=== PATIENT | male | born 1995 | race African-American/Black ===

== ENCOUNTER 2024-11-24 19:18 | Inpatient (IN) | payer OTHER, SELFPAY ==
[2024-11-24] VITALS (10 sets, daily range): BP systolic 103–135; BP diastolic 61–85; BMI 19.8
--- NOTE | 2024-11-24 14:17 | ED.GENMED ---
History of Present Illness
General
Chief Complaint: Chest Pain
Source: patient and ambulance crew
Time Seen by Provider: 11/24/24 14:05
History of Present Illness
History of Present Illness:
29-year-old male with past medical history of seizure disorder, ADHD and depression, chronic substance abuse use presenting to the ER with medics and police from [facility] for evaluation of chest pain and lower extremity
edema, EMS stating patient is likely withdrawing from xylazine as patient uses multiple times per day and has not used in about 2 days. Patient notes that the chest discomfort and lower extremity edema is somewhat chronic for him but today seems a
little bit worse. Denies any fevers, chills, rigors. Patient notes that he routinely snorts the xylazine and is adamant he does not use through a needle. Denies fevers, chills, rigors, vomiting, bowel changes or urinary symptoms.
Past History
Past History
ED Past Medical History: Asthma, Seizures and Psychiatric
ED Past Surgical History: None
Social History
Tobacco: Smoker
Alcohol: None
Drug: Narcotics
Personal: Single
Living: long-term (usually with mom. 'in and out' [facility]. currently incarcerated.)
Review of Systems
Review of Systems
All Other Systems: ROS reviewed and negative except as documented in HPI and ROS
Phy Exam
Physical Exam
Physical Exam:
GENERAL: Alert , in no apparent distress, appears older than stated age, unkempt
EYE: clear conjunctiva b/l, pupils dilated to 5 mm bilateral
HEAD: NCAT
ENT: o/p clr, increased oral secretions
CARDIAC: Regular rate and rhythm .
LUNGS: Rhonchorous lung sounds throughout, no acute respiratory distress, speaking full sentences
ABDOMEN: Soft, without focal tenderness, no r/g, no cvat, negative Tejada sign, no tenderness at McBurney's point
NEUROLOGICAL: Alert and oriented
SKIN: Warm and dry flaking skin to the bilateral lower extremities, skin intact.
MUSCULOSKELETAL: 1+ pitting edema to the ankles, well perfused.
PSYCH: Normal and appropriate interaction.
Scores
Heart Failure Risk
Heart Failure Risk Score: Not Applicable
Heart Score for Chest Pain Patients
STEMI patient?: Not applicable
Withdrawal Assessment of Alcohol
Withdrawal Assessment Completed?: Not applicable
Course
Orders/Labs/Results
Orders:
Orders
11/24/24 14:09
EKG [Electrocardiogram (*1)] Urgent
Reason for Study: Chest Pain
EKG- Treatment ONCE
11/24/24 14:11
CR Chest - 2 Views Urgent
Comment:
Reason For Exam: chest pain, edema
11/24/24 14:15
Clonidine [Catapres] 0.1 mg PO NOW STA
11/24/24 14:19
Lorazepam [Ativan] 0.5 mg IV NOW STA
11/24/24 15:42
Complete Blood Count/With Diff Urgent
NT-proBNP Urgent
Troponin I Urgent
11/24/24 17:10
Comprehensive Metabolic Panel Urgent
Magnesium Urgent
Comment: ADDON
Phosphorus Urgent
Comment: ADDON
TSH Urgent
Comment: ADDON
11/24/24 17:53
Add On- LAB Urgent
Tests Added?: mag, phosphorous, TSH, parathyroid hormone
11/24/24 17:54
Potassium Chloride [KCl] 40 meq PO NOW STA
Potassium Chloride [KCl] 40 meq 0.9% Sodium Chloride 250 ml [Nss] 250 ml IV NOW
Abnormal Lab Results
11/24/24 11/24/24
15:42 17:10
RBC 3.80 L 10^6/uL
(4.70-6.10)
Hgb 10.3 L g/dL
(13.0-18.0)
Hct 31.8 L %
(39.0-52.0)
MCHC 32.4 L g/dL
(33.0-37.0)
RDW 16.4 H %
(11.5-14.5)
Plt Count 421 H 10^3/uL
(130-400)
Potassium 2.7 L* mmol/L
(3.5-5.1)
Chloride 112 H mmol/L
(98-107)
Calcium 6.5 L* mg/dl
(8.4-10.2)
Total Bilirubin 0.1 L mg/dl
(0.2-1.3)
Total Protein 3.7 L g/dl
(6.3-8.2)
Albumin 1.3 L g/dl
(3.5-5.0)
11/24/24 15:42
11/24/24 17:10
Vital Signs
Initial and Last Documented VS:
Initial Vital Signs
Temp Pulse Resp BP Pulse Ox
97.5 F 56 11 115/69 99
11/24/24 14:17 11/24/24 14:17 11/24/24 14:17 11/24/24 14:17 11/24/24 14:17
Last Documented Vital Signs
Temp Pulse Resp BP Pulse Ox
97.5 F 57 14 130/73 100
11/24/24 14:17 11/24/24 15:56 11/24/24 15:30 11/24/24 15:54 11/24/24 15:56
MDM/Problems Addressed
Differential Diagnosis Includes:
Opiate withdrawal, pneumonia, peripheral vascular disease, CHF, endocarditis or other valvular disease
MDM/Problems Addressed:
29-year-old male presenting the emergency department for evaluation of chest discomfort and lower extremity edema, recently became inmate at [facility] yesterday, last use of xylazine 2 days ago. Notes he uses multiple times
per day. He has increased oral secretions and pupillary dilatation. At this time I do suspect there to be mild withdrawal. Will check labs due to patient's reported chest pain including troponin and EKG. Chest x-ray ordered. Disposition pending
Chronic conditions affecting care: Psychiatric illness
*Radiology
Radiology exam reviewed: radiology read reviewed
*Pulse Oximetry
Patient hypoxic: no
*[employer] Interpretation
Rate: bradycardiac
Rhythm: sinus
*Critical Care Note
Total Time (30-74mins, 75-104mins- exclusive of procedures): Not Applicable
Patient Management
Escalation/DeEscalation of care consider admission/obs:
Patient has significant chemistry abnormalities with a potassium of 2.7 and calcium of 6.5. I added on magnesium, phosphorus, TSH and parathyroid hormone. Ordered potassium repletion both oral and IV. Patient unable to stand up on his own due to
generalized weakness. Given his symptomatic hypokalemia and hypocalcemia patient will require admission for repletion and further workup. Hospitalist team accepts for continued evaluation and treatment.
Also of note, patient's chest x-ray shows questionable pneumonia/pneumonitis. He does have increased oral secretions and is certainly possible he could have aspirated especially given his daily substance use. Will defer antibiotic treatment to
hospitalist team as patient is afebrile without leukocytosis or current respiratory symptoms.
ED Attending Note
-
Portions of this chart may have been created with voice recognition software.� Occasional wrong word or��sound alike� substitutions may have occurred due to the inherent limitations of voice recognition software.
Discharge Plan
Departure
Patient Disposition: Admit
Date of Disposition: 11/24/24
Time of Disposition: 17:55
Presentation/result/management discussed w/ accepting MD/DO: Hospitalist
Discharge Problem:
Opiate withdrawal, Hypocalcemia, Hypokalemia
Prescriptions:
No Action
fluticasone propion-salmeterol [Advair HFA] 1 PUFF HFA aerosol inhaler
PRN (Reason: ASTHMA)
venlafaxine [Effexor] 75 MG tablet
75 mg PO DAILY
trazodone 50 MG tablet
50 mg PO HS
Referrals:
[facility] [Family Provider] -
Interventions
Interventions:
*Risk Screen - Suicide Last Done: 11/24/24 16:00
*Neglect/Abuse Screening Last Done: 11/24/24 16:00
ED- Cardiac Assessment Last Done: 11/24/24 15:32
Discharge Date and Time
Print Language: ITALIAN
[2024-11-24] MEDS: ATIVAN 0.5 MG IV ×2 (15:51→21:07)
[2024-11-24 15:56] LABS: % Eosinophils 0.1 % (0-6); % Immature Granulocytes 0.4 % (0-0.5); % Lymphocytes 28.9 % (20.5-51.1); % Monocytes 4.6 % (1.7-9.3); Absolute Lymphocytes 2.5 10^3/uL (1.2-3.4); Absolute Monocytes 0.4 10^3/uL (0.1-0.6); Absolute Neutrophils 5.6 10^3/uL (1.4-6.5); Hematocrit 31.8 % (39.0-52.0); Hemoglobin 10.3 g/dL (13.0-18.0); Mean Corp Hgb Conc. 32.4 g/dL (33.0-37.0); Mean Corpuscular Hgb 27.1 pg (27.0-31.0); Mean Corpuscular Volume 83.7 fL (80.0-94.0); Mean Platelet Volume 9.4 fL (7.4-10.4); Nucleated Red Blood Cells % 0 % (-); Platelet Count 421 10^3/uL (130-400); Red Cell Dist. Width 16.4 % (11.5-14.5); White Blood Cell Count 8.5 10^3/uL (4.8-10.8)
[2024-11-24 16:16] LABS: NT-proBNP 419 pg/ml; Troponin I < 0.012 ng/ml
[2024-11-24 17:48] LABS: ALT (SGPT) 28 U/L (0-50); AST (SGOT) 26 U/L (17-59); Albumin 1.3 g/dl (3.5-5.0); Alkaline Phosphatase 76 U/L (38-126); Blood Urea Nitrogen 14 mg/dl (9-20); Calcium 6.5 mg/dl (8.4-10.2); Carbon Dioxide 26 mmol/L (22-30); Chloride 112 mmol/L (98-107); Estimated Creatinine Clearance > 125 ml/min; Glucose 72 mg/dl (70-99); Potassium 2.7 mmol/L (3.5-5.1); Sodium 138 mmol/L (135-145); Total Bilirubin 0.1 mg/dl (0.2-1.3); Total Protein 3.7 g/dl (6.3-8.2); eGFR > 60.00
[2024-11-24] MEDS: KCL 40 MEQ PO (18:09)
--- NOTE | 2024-11-24 18:18 | HPS.HSE ---
Family Physician
-
Family Physician: Facility [facility]
Chief Complaint
-
chest pain, lower extremity edema
History of Present Illness
Patient is a 29-year-old male with past medical history significant for chronic substance abuse, ADHD, depression, and hx seizure presented to [facility] ED for evaluation of chest pain and lower extremity edema. Patient states he always
has lower extremity edema and has never had it worked up. He states his chest pain is chronic as well and that it is slightly worse today then normal. He claims to only use xylazine by snorting, denies any other drug or alcohol use. States he smokes
a half of pack of cigarettes a day. He reports seizure history is from seizures when withdrawing from drug use. Patient denies any fever, chills, cough, shortness of breath, nausea, vomiting, constipation, diarrhea or urinary symptoms.
Medical History
Past Medical History
Past Medical History: Reports Other
Additional Past Medical History:
chronic substance abuse
ADHD
depression
hx seizure
Past Surgical History: Reports Other (patients states he has had surgeries but does not recall what they were for )
Social History
Tobacco: Smoker (0.5 pack per day for years )
Alcohol: None
Drug: Other (snorts xylazine multiple times per day, last use 2 days ago)
Living: With Family
Employment: Employed
Family History
Family History: Unable to Obtain
Allergies / Home Medications
Allergies reflects when Allergies were last updated in [employer].
Home Medications with original date entered in [employer]
Allergy/Medication List:
Allergies
Allergy/AdvReac Type Severity Reaction Status Date / Time
grass pollen Allergy ASTHMA Verified 11/24/24 18:15
house dust Allergy ASTHMA Verified 11/24/24 18:15
pollen extracts Allergy ASTHMA Verified 11/24/24 18:15
POTATO BREAD Allergy Rash Uncoded 11/24/24 18:15
Home Medications
No Meds [No Current Medications] 11/24/24
Review of Systems
-
History Source: Patient
Constitutional: Reports No Symptoms
EENT: Reports No Symptoms
Respiratory: Reports No Symptoms
Cardiac: Reports Chest Pain
Abdomen/GI: Reports No Symptoms
: Reports No Symptoms
Musculoskeletal: Reports Other (bilateral lower extremity )
Skin: Reports No Symptoms
Neurological: Reports No Symptoms
Endocrine: Reports No Symptoms
Hematologic/Lymphatic: Reports No Symptoms
Psych: Reports No Symptoms
Physical Exam
Vital Signs
Vital Signs
Temp Pulse Resp BP Pulse Ox
97.5 F 57 14 130/73 100
11/24/24 14:17 11/24/24 15:56 11/24/24 15:30 11/24/24 15:54 11/24/24 15:56
Physical Exam
General: Well Developed, Well Nourished, No Apparent Distress, Comfortable and Conversant
HEENT: NormoCephalic, Moist mucous membranes, Atraumatic, Nose Appears Normal and Ears Appear Normal
Respiratory: Clear and Non Labored Respirations
Cardiac: S1/S2 and Regular Rhythm; No Murmur, Rub or Gallop
Breast: Deferred by me
GI: Soft, Non Tender, Non Distended and Normal Bowel Sounds; No Organomegaly
Rectal: Deferred by Provider
Genito-urinary: Deferred by me
Musculoskeletal: No Clubbing, No Cyanosis, Edema, Left Lower Extremity and Edema, Right Lower Extremity
Skin: Warm and IV/Catheter Site; No Rash
Neuro: Awake, Alert, AO x 3 and Nonfocal/grossly intact
Psych: Calm
Laboratory Results
-
11/24/24 15:42
11/24/24 17:10
Laboratory Results
Total Bilirubin 0.1 mg/dl (0.2-1.3) L 11/24/24 17:10
AST 26 U/L (17-59) 11/24/24 17:10
ALT 28 U/L (0-50) 11/24/24 17:10
Alkaline Phosphatase 76 U/L (38-126) 11/24/24 17:10
Troponin I < 0.012 ng/ml 11/24/24 15:42
Data Reviewed
-
Diagnostic Radiology: Report Reviewed by me (CXR: Patchy right perihilar and right middle lobe opacities, suspicious for mild pneumonitis/pneumonia in the appropriate clinical setting. No pleural effusion or pneumothorax. The cardiomediastinal
silhouette is normal.)
Lab Data: Labs Reviewed by me (K+ 2.7, Ca 6.5, Phos 2.4)
Impression/Plan
-
IMPRESSION/PLAN:
#chest pain, lower extremity edema
#chronic substance abuse with withdraw symtpoms
current Xylazine user, snorts, last used 2 days ago
EKG: SINUS BRADYCARDIA
RIGHTWARD AXIS
BORDERLINE ECG
- PRN clonidine
- PRN Ativan
- consider COWS protocol after UDS results
#electrolyte imbalance
K+ 2.7, Ca + 6.5, Corrected Ca+ with hypoalbuminemia 8.7, Phos 2.4
- monitor CMP
- replete as indicated
#ADHD
#depression
#hx seizure
Code status: Full code
DVT Prophylaxis: Lovenox sq
[2024-11-24 18:26] LABS: Magnesium 1.6 mg/dl (1.6-2.3); Phosphorus 2.4 mg/dl (2.5-4.5)
[2024-11-24] MEDS: KCL 270 MEQ IV (18:44)
--- NOTE | 2024-11-24 19:14 | W.PN.UPDATE ---
Addendum entered and electronically signed by Manuel Espino MD 11/24/24 22:40:
Patient also complained of chest pain. EKG unremarkable. Troponin pending.
Original Note:
Update Note
Progress Note Update
This is an addendum to the H&P written by Rosie Caro on 11/24/2024. Patient seen and examined independently with PIPE RACKER.
29-year-old male past medical history of xylazine use, history of withdrawal seizures, ADHD/depression, presenting from [facility] after he was incarcerated yesterday for xylazine use/withdrawal. Patient with chills, nausea vomiting
and diarrhea, and cough.
Labs show hypokalemia, hypophosphatemia.
Patient last used xylazine 2 days ago nasally. He smokes half pack of cigarettes per day. Denies other drug use. Highly likely that he is using fentanyl as well with component of fentanyl withdrawal.
Electrolyte abnormalities likely secondary to vomiting/diarrhea.
IV fluids. Replete electrolytes. Check UDS she was not checked in the ER. Clonidine as needed and Ativan as needed. Will add buprenorphine as well once UDS confirms opiate ingestion.
Check COVID and flu.
[2024-11-24 19:55] LABS: TSH 0.43 uIU/ml (0.47-4.68)
[2024-11-24 20:05] LABS: COVID-19 Antigen Negative (Negative)
[2024-11-24] MEDS: SODIUM PHOSPHATE 255 MEQ IV (20:44)
[2024-11-24] MEDS: NSS 1000 IV (21:07)
[2024-11-24 23:08] LABS: Troponin I < 0.012 ng/ml
[2024-11-25 00:28] VITALS: BP 99/67
[2024-11-25 00:30] VITALS: BMI 18.9
[2024-11-25 02:19] LABS: Amphetamines Negative (Negative); Barbiturates Negative (Negative); Benzodiazepines Positive (Negative); Buprenorphine Negative (Negative); Cocaine Negative (Negative); Marijuana Positive (Negative); Methadone Negative (Negative); Methamphetamines Negative (Negative); Opiates Negative (Negative); Phencyclidine Negative (Negative); Tricyclic Antidepressants Negative (Negative)
[2024-11-25 02:33] LABS: Fentanyl, Urine Positive (Negative)
[2024-11-25 03:32] VITALS: BP 106/65
[2024-11-25] MEDS: ATIVAN 0.5 MG IV (04:55)
[2024-11-25] MEDS: NSS (PRESERVATIVE FREE) 0.25 ML IV (04:56)
[2024-11-25] MEDS: CATAPRES 0.1 MG PO (06:01)
[2024-11-25 07:00] VITALS: BP 137/87
[2024-11-25] MEDS: NSS 1000 IV (10:13)
--- NOTE | 2024-11-25 10:50 | W.PN.HOSP.TC ---
Addendum entered and electronically signed by Tank Hernandez DO 11/25/24 13:57:
Labs reviewed for today. Electrolytes now normal.
Leukocytosis noted but afebrile and looks nontoxic. Doubt infection, suspect leukemoid reaction.
Troponins negative.
Not tachycardic or hypertensive. Clinically doubt opiate or xylazine withdrawal currently. He was not tachycardic or hypertensive on arrival in the emergency room as well.
Medically stable for discharge back to residential today.
Original Note:
Today's Communication/Plan
-
Await labs
Antiemetics
Encouraged diet
IV fluids
Assessment / Plan
Assessment / Plan
Gen-AAOx3, NAD
HEENT-NC, AT, anicteric, clear oral mm
Neck-supple
CV-reg, no M, +S1/S2
Lungs-clear B/L
Abd-soft, NT, ND
Ext-no edema
Musculoskeletal-no cyanosis, clubbing
Skin-warm and dry
Neuro-grossly non-focal
Psych-calm, cooperative
Presumed xylazine withdrawal syndrome -continue clonidine as needed. Antiemetics ordered. Continue IV fluids. Diet as tolerated.
Substance abuse -UDS positive for fentanyl, benzodiazepines, marijuana.
Atypical chest pain -started 3 days ago. EKG with sinus bradycardia. Rightward axis.
Chest x-ray reportedly shows patchy opacities in the right lung but I do not see them on my review of the film.
He does report a cough and vomiting reportedly, rule out aspiration pneumonitis. He is hemodynamically stable, not requiring oxygen. Denies shortness of breath. No signs or symptoms of sepsis. Hold antibiotics for now.
Normocytic anemia -unknown etiology or acuity. Labs pending for today. Baseline hemoglobin unknown.
Hypokalemia - treated yesterday, labs pending for today.
Hypophosphatemia -treated yesterday, labs pending for today.
Hypocalcemia -calcium 6.5, albumin 1.3. Corrected calcium 8.8.
ADHD
Depression
History of seizure
Full code
Anticipated Discharge: 24 - 48 hours
Subjective/Interval History
-
Date of Service: November 25, 2024
Patient seen and examined. Complaining of nausea. Left-sided chest pain.
Objective Data
-
Labs:
Laboratory Results
11/25/24
06:00
WBC Pending
Hgb Pending
Hct Pending
Plt Count Pending
Sodium Pending
Potassium Pending
Chloride Pending
Carbon Dioxide Pending
BUN Pending
Creatinine Pending
Glucose Pending
Vital Signs:
Vital Signs
Temp Pulse Resp BP Pulse Ox
97.6 F 63 18 137/87 100
11/25/24 07:00 11/25/24 07:00 11/25/24 07:00 11/25/24 07:00 11/25/24 07:00
I&O
11/24/24 11/25/24 11/26/24
06:59 06:59 06:59
Intake Total 240 / 240
Output Total 250 / 250
Balance -10 / -10
Review of Systems
-
History Source: Patient
All other systems: Reviewed and negative
[2024-11-25 11:00] VITALS: BP 103/71
[2024-11-25 11:14] LABS: Hematocrit 32.1 % (39.0-52.0); Hemoglobin 10.7 g/dL (13.0-18.0); Mean Corp Hgb Conc. 33.3 g/dL (33.0-37.0); Mean Corpuscular Hgb 27.4 pg (27.0-31.0); Mean Corpuscular Volume 82.1 fL (80.0-94.0); Mean Platelet Volume 9.4 fL (7.4-10.4); Platelet Count 468 10^3/uL (130-400); Red Blood Cell Count 3.91 10^6/uL (4.70-6.10); Red Cell Dist. Width 16.5 % (11.5-14.5); White Blood Cell Count 15.1 10^3/uL (4.8-10.8)
[2024-11-25 11:28] LABS: Blood Urea Nitrogen 14 mg/dl (9-20); Calcium 7.7 mg/dl (8.4-10.2); Carbon Dioxide 26 mmol/L (22-30); Chloride 115 mmol/L (98-107); Estimated Creatinine Clearance > 125 ml/min; Glucose 91 mg/dl (70-99); Magnesium 1.9 mg/dl (1.6-2.3); Phosphorus 2.8 mg/dl (2.5-4.5); Potassium 4.2 mmol/L (3.5-5.1); Sodium 141 mmol/L (135-145); eGFR > 60.00
[2024-11-25 11:40] LABS: Troponin I < 0.012 ng/ml
[2024-11-25] MEDS: LR 1000 IV (13:39)
[2024-11-25] MEDS: ZOFRAN 4 MG IV (13:40)
--- NOTE | 2024-11-25 13:55 | W.DS.TRANS ---
DC Summary - Helmet Binder
-
Discharge Instructions:
Discharge Diagnosis/Procedures Chest pain
Diet Regular
Activity As tolerated
Driving Restrictions No driving
Bathing Restrictions None
Instructions:
Stand-Alone Forms:
Changes to Home Medications: No
Discharge Medications:
DC Medications w/original date entered in [employer]
clonidine HCl 0.1 mg tablet 0.1 mg PO Q6HPRN PRN withdraw symptoms #0 tabs 11/25/24
Home Medication Changes
Pending Results: No
[2024-11-25 14:53] VITALS: BP 116/74
[2024-11-25 15:16] LABS: Intact PTH 27.1 pg/ml (13.6-85.8)
== END 2024-11-25 14:49 | DRG 897 ==
LOC: 3 WEST ACU 19:18
PROVIDERS: Nurse Practitioner Family; Physician Assistant Medical; ADMITTING PHYSICIAN Hospitalist; ATTENDING PHYSICIAN Hospitalist; EMERGENCY PHYSICIAN Emergency Medicine
DX: F13.139 Sedative, hypnotic or anxiolytic abuse with withdrawal, unspecified (principal); F90.9 Attention-deficit hyperactivity disorder, unspecified type; F11.10 Opioid abuse, uncomplicated; F12.10 Cannabis abuse, uncomplicated; F17.210 Nicotine dependence, cigarettes, uncomplicated; F32.A Depression, unspecified; E83.39 Other disorders of phosphorus metabolism; E87.6 Hypokalemia; R07.89 Other chest pain; D64.9 Anemia, unspecified; E83.51 Hypocalcemia; Z11.52 Encounter for screening for COVID-19; Z86.69 Personal history of other diseases of the nervous system and sense organs
CPT/HCPCS: 71046; 80048; 80053; 80306; 80307; 83735; 83880; 83970; 84100; 84443; 84484; 85025; 85027; 87070; 87147; 87502; 87811; 93005; 96361; 96374; 96375; 99285